=== PATIENT | female | born 2000 | race Caucasian/White ===

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

== ENCOUNTER 2020-01-19 15:50 | Emergency (ER) | payer MEDICAID ==
[~2020-01-19] VITALS: Ht 157.5 cm; Wt 58.5 kg
[2020-01-19 15:57] VITALS: BP 111/90
--- NOTE | 2020-01-19 15:57 | NUR ---
PT AMBULATED TO CHAIR A, STEADY GAIT.
--- NOTE | 2020-01-19 16:16 | NUR ---
19 Y/F PRESENTS TO ED FOR EPIGASTRIC PAIN SINCE AUGUST. PT REPORTS 5/10 BURNING PAIN. PT REPORTS SHE EATS ALOT OF SPICY AND FRIED FOOD. PMH- DENIES NKDA RX- MOTRIN
[2020-01-19 16:30] VITALS: BP 111/90
--- NOTE | 2020-01-19 16:30 | NUR ---
Patient discharged with v/s stable. Written and verbal after care instructions given and explained. Patient alert, oriented and verbalized understanding of instructions. Ambulatory with steady gait. All questions addressed prior to discharge. ID band removed. Patient advised to follow up with PMD. Rx of mylanta, tylenol, and omeprazole given. Patient educated on indication of medication including possible reaction and side effects. Opportunity to ask questions provided and answered.
== END 2020-01-19 16:30 | disposition home or self-care (01) ==
LOC: MED 15:50
DX: K21.9 Gastro-esophageal reflux disease without esophagitis (principal)
CPT/HCPCS: 81002; 81025; 99282

== ENCOUNTER 2020-09-27 11:41 | Emergency (ER) | payer SELFPAY ==
[~2020-09-27] VITALS: Ht 160 cm; Wt 63.5 kg
[2020-09-27 11:57] VITALS: BP 130/79
[2020-09-27 12:50] VITALS: BP 130/79
== END 2020-09-27 12:50 | disposition home or self-care (01) ==
LOC: MED 11:41
DX: R10.10 Upper abdominal pain, unspecified (principal); R03.0 Elevated blood-pressure reading, without diagnosis of hypertension
CPT/HCPCS: 81025; 99282